=== PATIENT | male | born 1980 | race Caucasian/White ===

== ENCOUNTER 2019-01-26 10:28 | Emergency (ER) | payer MEDICAID ==
[~2019-01-26] VITALS: Ht 180.3 cm; Wt 108.9 kg
--- NOTE | 2019-01-26 10:32 | NUR ---
Patient to ER bed 08 to gown for evaluation. Side rails up.
--- NOTE | 2019-01-26 10:35 | NUR ---
Pt brought by self, A&Ox4, pt states he fall down one step onto flat ground, pt c/o L lower back pain, pt is ambulatory, skin pink and warm, no other injuries noted.
[2019-01-26 10:43] VITALS: BP_SYST 136
--- NOTE | 2019-01-26 11:04 | NUR ---
Dr Costello at bedside examining patient.
[2019-01-26] MEDS ORDERED: KETOROLAC TROMETHAMINE 60 MG/2 ML VIAL IM ONE (12:00)
--- NOTE | 2019-01-26 12:26 | NUR ---
Patient transported to radiology via gurney, accompanied by technician telecommunication systems.
--- NOTE | 2019-01-26 12:35 | NUR ---
Returned from radiology, back to [facility].
[2019-01-26 14:45] VITALS: BP_SYST 136
--- NOTE | 2019-01-26 14:46 | NUR ---
Patient given written and verbal discharge instructions and verbalizes understanding. ER MD discussed with patient the results and treatment provided. Patient in stable condition. ID arm band removed. IV catheter removed intact and dressing applied, no active bleeding. Rx of Tramadol and Robaxin given. Patient educated on pain management and to follow up with PMD. Pain Scale 3/10 tolerable for pt. Opportunity for questions provided and answered. Medication side effect fact sheet provided.
== END 2019-01-26 14:45 | disposition home or self-care (01) ==
LOC: SED 10:28
DX: S30.0XXA Contusion of lower back and pelvis, initial encounter (principal); Z90.49 Acquired absence of other specified parts of digestive tract; W19.XXXA Unspecified fall, initial encounter; Y93.89 Activity, other specified; Y92.89 Other specified places as the place of occurrence of the external cause; Y99.8 Other external cause status
CPT/HCPCS: 72100; 72170; 72220; 96372; 99283; J1885

== ENCOUNTER 2020-04-12 14:46 | Emergency (ER) | payer MEDICAID ==
[~2020-04-12] VITALS: Ht 180.3 cm; Wt 108.9 kg
[2020-04-12 15:11] VITALS: BP_SYST 157
[2020-04-12 16:25] LABS: BASOPHILS % (AUTO) 0.3 % (0.0-2.0); EOSINOPHILS % (AUTO) 0.9 % (0.0-4.0); HEMATOCRIT 44.6 % (36-54); HEMOGLOBIN 15.4 g/dL (14.0-18.0); LYMPHOCYTES # (AUTO) 1.6 K/uL (1.0-5.5); LYMPHOCYTES % (AUTO) 27.9 % (20.5-51.5); MEAN CORPUSCULAR HEMOGLOBIN 32 pg (27-31); MEAN CORPUSCULAR HGB CONC 35 % (32-36); MEAN CORPUSCULAR VOLUME 94 fL (79.0-98.0); MONOCYTES # (AUTO) 0.4 K/uL (0.0-1.0); MONOCYTES % (AUTO) 6.5 % (1.7-9.3); NEUTROPHILS # (AUTO) 3.6 K/uL (1.8-7.7); NEUTROPHILS % (AUTO) 64.4 % (40.0-70.0); PLATELET COUNT (AUTO) 293 K/uL (130-430); RED BLOOD CELL COUNT(AUTO) 4.77 MIL/uL (4.2-6.2); RED CELL DISTRIBUTION WIDTH 13.4 % (9.0-15.0); WHITE BLOOD COUNT (AUTO) 5.6 K/uL (4.8-10.8)
[2020-04-12 16:43] LABS: CALCIUM 8.8 mg/dL (8.4-11.0); CREATININE 1.1 mg/dL (0.55-1.30); POTASSIUM 3.5 mmol/L (3.5-5.1)
[2020-04-12 16:49] LABS: TOTAL BILIRUBIN 0.6 mg/dL (0.0-1.0)
--- NOTE | 2020-04-12 16:59 | NUR ---
Patient to ER bed 03 to gown for evaluation. Side rails up. Report given to EMIL العلي
--- NOTE | 2020-04-12 17:10 | NUR ---
Patient presented to ER C/O diarrhea. Patient ambulatory to ER, afebrile, skin pink & warm, denies pain, denies N/V/D. Patient states he has diarrhea x2 weeks; pt states he has tried changing diet with no improvement.
--- NOTE | 2020-04-12 17:11 | NUR ---
ER ISAK Mcclain examined patient in waiting room.
[2020-04-12 17:55] LABS: BILIRUBIN,URINE NEGATIVE (NEGATIVE); BLOOD, URINE NEGATIVE (NEGATIVE); CLARITY/URINE CLEAR (CLEAR); COLOR,URINE YELLOW (YELLOW); GLUCOSE,URINE NEGATIVE (NEGATIVE); KETONES,URINE NEGATIVE (NEGATIVE); LEUKOCYTE ESTERASE ,URINE NEGATIVE (NEGATIVE); NITRITE, URINE NEGATIVE (NEGATIVE); PROTEIN URINE NEGATIVE (NEGATIVE)
[2020-04-12 18:34] VITALS: BP_SYST 149
--- NOTE | 2020-04-12 18:34 | NUR ---
Patient given written and verbal discharge instructions and verbalizes understanding. ER MD discussed with patient the results and treatment provided. Patient in stable condition. ID arm band removed. Rx of Bismuth given. Patient educated on pain management and to follow up with PMD. Pain Scale 0/10. Opportunity for questions provided and answered. Medication side effect fact sheet provided.
== END 2020-04-12 18:34 | disposition home or self-care (01) ==
LOC: SED 14:46
DX: R19.7 Diarrhea, unspecified (principal); R03.0 Elevated blood-pressure reading, without diagnosis of hypertension; Z90.49 Acquired absence of other specified parts of digestive tract
CPT/HCPCS: 36415; 80053; 81003; 83690-TC; 85025; 99284

== ENCOUNTER 2020-06-16 07:38 | Emergency (ER) | payer MEDICAID ==
[~2020-06-16] VITALS: Ht 180.3 cm; Wt 108.9 kg
[2020-06-16 07:38] VITALS: BP_SYST 144
--- NOTE | 2020-06-16 07:38 | NUR ---
TAKEN TO [facility] TRIAGE TENT, TRIAGED, REPORT GIVEN TO ALMA
--- NOTE | 2020-06-16 07:40 | NUR ---
Pt walked in to ER with c/o flu-like symptoms x2 days. Reports was positive for covid. V/S stable, pt is afebrile. Currently waiting in tent, will continue to monitor.
--- NOTE | 2020-06-16 07:50 | NUR ---
VAN Sanford at bedside examining patient.
--- NOTE | 2020-06-16 08:35 | NUR ---
Pt swabbed for covid as per MD order. Sample sent to lab, pt tolerated well.
--- NOTE | 2020-06-16 08:50 | NUR ---
Patient given written and verbal discharge instructions and verbalizes understanding. ER MD discussed with patient the results and treatment provided. Patient in stable condition. ID arm band removed. Rx of Doxycycline given. Patient educated on pain management and to follow up with PMD. Pain Scale 0. Opportunity for questions provided and answered. Medication side effect fact sheet provided.
[2020-06-16 08:52] VITALS: BP_SYST 144
== END 2020-06-16 08:50 | disposition home or self-care (01) ==
LOC: SED 07:38
DX: U07.1 COVID-19 (principal); B34.9 Viral infection, unspecified
CPT/HCPCS: 71045; 99284; C9803; U0003